=== PATIENT | female | born 1945 | race Caucasian/White ===

== ENCOUNTER 2020-11-02 09:39 | Outpatient (CLI) | payer MEDICARE ==
--- NOTE | 2020-11-02 11:05 | CT ---
Low-dose screening chest CT without contrast: 11/02/2020 COMPARISON: None HISTORY: Former smoker, past personal history of nicotine dependence TECHNIQUE: Axial CT imaging at 2 mm intervals through the chest without contrast using the low-dose s creening protocol. Coronal and sagittal reformatted imaging obtained. FINDINGS: Evaluation of the imaged viscera, the vascular structures, and for lymphadenopathy is limit ed on noncontrast enhanced imaging. The imaged upper abdomen demonstrates apparent malrotation of the left kidney which is only partially imaged on this examination, demonstrating a horizontal configuration. There are atherosclerotic calcifications of the imaged upper abdominal aorta. No pleural, pericardial, or mediastinal fluid is seen. There is coronary arterial calcification and there is atherosclerotic calcification of the aortic arc h, and the proximal great vessels. Limited evaluation of the chest demonstrates no discrete lymphadenopathy. Left lower lobe: Peripheral areas of linear interstitial density are noted posteriorly and inferiorly . There is a nodule within the posterior left lower lobe on axial image 108 measuring 7 mm. Left upper lobe: Pleural-based irregular density noted posteriorly on axial image 29 measuring 7 mm i n AP dimension. There is a focal area of pleural-based increased density within the anterior inferior aspect of the l eft upper lobe/lingula measuring up to approximately 2.4 cm in craniocaudal dimension and 1.1 cm in transverse dimension, demonstrating a configuration most consistent with scar/volume loss. Anterior l inear areas of pleural-based density are noted within the medial left upper lobe suggesting areas of scar formation. There is a small pleural-based nodule within the anterior aspect of the left upper lobe on image 75 measuring approximately 5 mm. Right upper lobe: Peripheral areas of pleural-based density are noted suggesting scar and/or volume l oss, most prominent near the apex on image 20. There is a clustered area of reticulonodular densities within the inferior posterior aspect of the right upper lobe, with a tree-in-bud configurat ion most consistent with an inflammatory process, with nodules measuring up to 4-5 mm. Right middle lobe: There is medial inferior right middle lobe volume loss with mild associated bronch iectasis. Clustered reticulonodular density noted within the anterior superior aspect of the right middle lobe, likely on the basis of an inflammatory process. On coronal image 39 there is a right middle lobe nodule measuring approximately 7 mm in craniocaudal dimension. Right lower lobe: Mild bronchiectatic change. No new discrete pulmonary parenchymal mass lesion/nodul e. Review of the osseous structures demonstrates no worrisome lytic or blastic lesion. IMPRESSION: Lung RADS category 3-probably benign. Recommend a follow-up low-dose chest CT in 6 months . Lung RADS category S-other clinically significant or potentially clinically significant findings. Thi s includes areas of reticulonodular density on the right which may be on the basis of atypical inflammatory/infectious process. There is atherosclerotic disease, including coronary arterial calcif ication as detailed above.
== END 2020-11-02 09:40 | disposition home or self-care (01) ==
LOC: BICCT 09:39
PROVIDERS: ATTEND Internal Medicine
DX: Z12.2 Encounter for screening for malignant neoplasm of respiratory organs (principal); I25.10 Atherosclerotic heart disease of native coronary artery without angina pectoris; J98.4 Other disorders of lung; Z87.891 Personal history of nicotine dependence
CPT/HCPCS: G0297

== ENCOUNTER 2021-05-03 14:43 | Outpatient (CLI) | payer MEDICARE | END 2021-05-03 14:44 | disposition home or self-care (01) | LOC: BICCT 14:43 | PROVIDERS: ATTEND Internal Medicine | DX: Z12.2 Encounter for screening for malignant neoplasm of respiratory organs (principal); Z87.891 Personal history of nicotine dependence; R93.89 Abnormal findings on diagnostic imaging of other specified body structures; J98.4 Other disorders of lung; R91.1 Solitary pulmonary nodule | CPT/HCPCS: 71271 ==

== ENCOUNTER 2022-12-06 08:25 | Outpatient (CLI) | payer OTHER | END 2022-12-06 08:26 | disposition home or self-care (01) | LOC: BICCT 08:25 | PROVIDERS: ATTEND Internal Medicine Critical Care Medicine | DX: R91.8 Other nonspecific abnormal finding of lung field (principal); N28.9 Disorder of kidney and ureter, unspecified | CPT/HCPCS: 71250 ==